=== PATIENT | male | born 1980 | race Two or more races ===

== ENCOUNTER → 2021-01-30 | Outpatient (CLI) | payer OTHER | LOC: EXRD 10:59 | DX: M25.571 Pain in right ankle and joints of right foot (principal) | CPT/HCPCS: 73610 ==

== ENCOUNTER → 2021-08-27 | Outpatient (CLI) | payer OTHER | LOC: LAB 07:37 | DX: R79.89 Other specified abnormal findings of blood chemistry (principal) | CPT/HCPCS: 36415; 80076 ==

== ENCOUNTER → 2021-09-05 | Outpatient (CLI) | payer OTHER | LOC: KOH-I 08:50 | DX: R79.89 Other specified abnormal findings of blood chemistry (principal) | CPT/HCPCS: 76700 ==

== ENCOUNTER → 2021-11-28 | Outpatient (CLI) | payer OTHER ==
[2021-11-28 09:11] LABS: BUN/CREATININE RATIO 14 (0-10)
== END ==
LOC: LAB 08:18
PROVIDERS: Family Medicine
DX: R79.89 Other specified abnormal findings of blood chemistry (principal); E78.5 Hyperlipidemia, unspecified
CPT/HCPCS: 36415; 80053; 80061; 80076; 82728; 83540; 83550; 83735